=== PATIENT | female | born 1955 | race Caucasian/White ===

== ENCOUNTER → 2025-03-22 | Day surgery (SDC) | payer BC ==
[2025-03-13 15:24] LABS: BASOPHILS % 0.8 % (0.0-1.0); EOSINOPHILS % 1.7 % (0.0-6.0); LYMPHOCYTES % 28.8 % (18.0-39.1); MONOCYTES % 9.5 % (4.4-11.3); NEUTROPHILS % 58.7 % (38.7-80.0); RED CELL DISTRIBUTION WIDTH 13.2 % (11.7-14.4)
[2025-03-13 15:51] LABS: EST GLOMERULAR FILTRATION RATE 64.0 ML/MIN (>=60)
[~2025-03-22] MED LIST: ACETAMINOPHEN 1000 MG/100 ML 100 ML IV ONE; ARMOUR THYROID60 MG PO; CALCIUM PO; CEFAZOLIN SODIUM 2 GM ONE; DEXAMETHASONE SOD PHOS INJ 4 MG/ML SDV ONE; FENTANYL CITRATE/PF 100MCG/2 ML INJ ONE; GABAPENTIN100 MG PO; LIDOCAINE HCL 2% LOCAL INJ 5 ML SDV VIAL INJ ONE; MULTI-VITAMIN1 EACH PO; ONDANSETRON HCL INJ 2MG/ML 2ML 2 MG/ML VIAL ONE; PROPOFOL IV EMULSION 10 MG/ML 20 ML VIAL ONE; ROPINIROLE HCL1 MG PO; ZETIA10 MG PO
[2025-03-22] MEDS: CEFAZOLIN SODIUM 2 GM VIAL IV ONE (07:30)
[2025-03-22] MEDS: LACTATED RINGER'S 1,000 ML BAG IV ONE (07:30)
[2025-03-22 10:30] VITALS: BP 140/86; PULSE 99; RESP 16; O2SAT 98
== END | disposition home or self-care (01) ==
LOC: OR 06:52
PROVIDERS: ATTEND Orthopaedic Surgery
DX: S83.232A Complex tear of medial meniscus, current injury, left knee, initial encounter (principal); S83.282A Other tear of lateral meniscus, current injury, left knee, initial encounter; X58.XXXA Exposure to other specified factors, initial encounter; M94.262 Chondromalacia, left knee; M65.162 Other infective (teno)synovitis, left knee; M17.12 Unilateral primary osteoarthritis, left knee; E03.9 Hypothyroidism, unspecified; Z79.890 Hormone replacement therapy; Z79.1 Long term (current) use of non-steroidal anti-inflammatories (NSAID); Z96.612 Presence of left artificial shoulder joint; Z01.810 Encounter for preprocedural cardiovascular examination; Z01.812 Encounter for preprocedural laboratory examination
CPT/HCPCS: 29880; 36415; 71046; 80053; 85025; 93005; J0131; J1100; J2003; J2405; J2704; J3010; J7121